=== PATIENT | female | born 1960 | race Caucasian/White ===

== ENCOUNTER 2024-11-18 11:00 | Outpatient (RCR) | payer OTHER, SELFPAY ==
--- NOTE | 2024-08-30 10:00 | OPREHPOC ---
Outpatient Therapy Plan of Care This is a Multidisciplinary Plan of Care that may contain components documented by all disciplines (PT, OT, and ST.) PT Problem 1 PT Problem #1 Knowledge Deficit PT Goal 1 Goal / Goal Update 1. Patient will perform independent HEP 2. Patient will verbalize urge suppression strategies Target Visit 3 PT Problem 2 PT Problem #2 Impaired Functional ADLs PT Goal 1 Goal / Goal Update 1. Patient will report incontinence no more than 1 time a week 2. Patient will not need to use pads on a daily basis 3. Patient will void no more than 10 times a day Target Visit 5 PT Problem 3 PT Problem #3 Impaired Strength PT Goal 1 Goal / Goal Update 1. Pelvic floor strength to 4/5 to reduce incontinence 2. Pelvic floor endurance to 10 seconds to reduce incontinence 3. Improve hip strength to 4+/5 in all planes Target Visit 5
--- NOTE | 2024-08-30 10:00 | PTOPEVAL1 ---
Assessment and note entered by Priyanka Rob DPT Evaluation Information Assessment Status Evaluation ICD-10 Condition Codes (PT) Weakness R53.1,Urge incontinence N39.41 Subjective Information Pt reports pelvic pressure that started a few years ago. States she has diabetes and voids frequently anyway but seems to be getting worse. Starts to get urge incontinence on the way to the toilet, typically a few drops and will only minimally wet a pad. Urge incontinence 3-4 times a day and uses 3-4 pads a day. Voids 10-20 times a day, another 1-3 times at night. Can hold urge to void 10-15 minutes. Denies pain with urination. Denies stress incontinence. BM every 2-3 days. Fecal incontinence approximately 1 time a month and depends on diet. No history of pelvic pain. Pt has been 3 times, delivered vaginally without complications. No other [employer] history, no b/ b history. Pt also reports concern over passing gas vaginally. Patient goal: see if therapy will help me, relieve the pressure and not void as often Also has a history of sciatica, gall bladder removal. Reported Pain Level Pain Score 0: Self Report Assessment PT Clinical Summary The patient is presenting to skilled therapy with a several year history of pelvic pressure and worsening urinary frequency and urge incontinence. She demonstrates decreased pelvic floor strength and endurance, signs of pelvic organ prolapse, as well as significantly decreased hip and core strength. These impairments are contributing to her incontinence multiple times a day and need to use pads, as well as her pelvic pressure and increased frequency of urination. She will highly benefit from skilled therapy to address impairments in order to reduce incontinence and improve function. Plan of Care Interventions Manual Therapy,Neuro Re-education,Patient/ Caregiver Education,Therapeutic Activities, Therapeutic Exercise PT Services Indicated Yes Treatment Frequency and 1 time a week for 5 visits Duration These treatments will address the objective and functional deficits as defined above. The patient will be advanced safely and appropriately in order for the patient to progress towards his/her prior level of function. Additional exercises will be introduced and as well as a comprehensive home exercise program upon discharge, if needed, ?to ensure carryover of functional gains achieved in the clinic. This treatment plan has been reviewed and agreement upon by the patient.
--- NOTE | 2024-09-27 09:29 | OPREHPOC ---
Outpatient Therapy Plan of Care This is a Multidisciplinary Plan of Care that may contain components documented by all disciplines (PT, OT, and ST.) PT Problem 1 PT Problem #1 Knowledge Deficit PT Goal 1 Goal / Goal Update 1. Patient will perform independent HEP 2. Patient will verbalize urge suppression strategies Target Visit 3 Progress Met PT Problem 2 PT Problem #2 Impaired Functional ADLs PT Goal 1 Goal / Goal Update 1. Patient will report incontinence no more than 1 time a week 2. Patient will not need to use pads on a daily basis 3. Patient will void no more than 10 times a day update 09/27 1. improved to 2 times per day 2. improved to 2 per day 3. met Target Visit 8 Progress Partially Met PT Problem 3 PT Problem #3 Impaired Strength PT Goal 1 Goal / Goal Update 1. Pelvic floor strength to 4/5 to reduce incontinence 2. Pelvic floor endurance to 10 seconds to reduce incontinence 3. Improve hip strength to 4+/5 in all planes update 09/27/24 1. met 2. met 3. no change Target Visit 8 Progress Partially Met
--- NOTE | 2024-09-27 09:29 | PTOPPROG ---
Assessment and note entered by Priyanka Rob DPT Evaluation Information Assessment Status Progress ICD-10 Condition Codes (PT) Weakness R53.1,Urge incontinence N39.41 Subjective Information Pt reports she is improving with therapy. Incontinence is occurring less often, now up to 2 times a day. She is not noticing as much pelvic pressure. Voiding less often than hourly now and is utilizing urge suppression strategies. Thinks she voided 7 times yesterday and 1 time last night . No fecal incontinence over the last month. Assessment PT Clinical Summary The patient has made excellent progress in therapy . She demonstrates improved pelvic floor strength and endurance and improved abdominal strength. She reports decreased frequency of incontinence as well as decreased urinary urgency/frequency. She does continue to report daily incontinence and demonstrate LE, abdominal, and pelvic floor weakness. She will benefit from continued therapy to further address strength in order to fully eliminate incontinence and return to full function . Plan of Care Interventions Manual Therapy,Neuro Re-education,Patient/ Caregiver Education,Therapeutic Activities, Therapeutic Exercise PT Services Indicated Yes Treatment Frequency and 1 time every other week x 3 visits Duration These treatments will address the objective and functional deficits as defined above. The patient will be advanced safely and appropriately in order for the patient to progress towards his/her prior level of function. Additional exercises will be introduced and as well as a comprehensive home exercise program upon discharge, if needed, ?to ensure carryover of functional gains achieved in the clinic. This treatment plan has been reviewed and agreement upon by the patient.
--- NOTE | 2024-11-18 11:39 | OPREHPOC ---
Outpatient Therapy Plan of Care This is a Multidisciplinary Plan of Care that may contain components documented by all disciplines (PT, OT, and ST.) PT Problem 1 PT Problem #1 Knowledge Deficit PT Goal 1 Goal / Goal Update 1. Patient will perform independent HEP 2. Patient will verbalize urge suppression strategies Target Visit 3 Progress Met PT Problem 2 PT Problem #2 Impaired Functional ADLs PT Goal 1 Goal / Goal Update 1. Patient will report incontinence no more than 1 time a week 2. Patient will not need to use pads on a daily basis 3. Patient will void no more than 10 times a day update 09/27, 11/18 1. improved to 2 times per day 2. improved to 2 per day 3. met Target Visit 9 Progress Partially Met PT Problem 3 PT Problem #3 Impaired Strength PT Goal 1 Goal / Goal Update 1. Pelvic floor strength to 4/5 to reduce incontinence 2. Pelvic floor endurance to 10 seconds to reduce incontinence 3. Improve hip strength to 4+/5 in all planes update 09/27/24 1. met 2. met 3. no change update 11/18/24 1. met 2. met 3. improved Target Visit 9 Progress Partially Met
--- NOTE | 2024-11-18 11:39 | PTOPPROG ---
Assessment and note entered by Priyanka Rob DPT Evaluation Information Assessment Status Progress ICD-10 Condition Codes (PT) Weakness R53.1,Urge incontinence N39.41 Subjective Information Pt reports she is not noticing any pelvic pressure or dropping sensation. Only waking up 1 time at night instead of 3-4 and can hold up to 4-5 hours between voiding. Incontinence 2 times a day, small volume typically and occurs right before voiding. Assessment PT Clinical Summary The patient has continued to make good progress in therapy. She reports normal voiding frequency and decreased sense of urgency, and no recent pelvic pressure. She does continue to have small volume of urinary incontinence 2 times daily. Due to her progress, the patient has been educated to continue with thorough HEP and will follow up with therapy in 1 month. Plan of Care Interventions Manual Therapy,Neuro Re-education,Patient/ Caregiver Education,Therapeutic Activities, Therapeutic Exercise PT Services Indicated Yes Treatment Frequency and 1 visit in 4 weeks Duration These treatments will address the objective and functional deficits as defined above. The patient will be advanced safely and appropriately in order for the patient to progress towards his/her prior level of function. Additional exercises will be introduced and as well as a comprehensive home exercise program upon discharge, if needed, ?to ensure carryover of functional gains achieved in the clinic. This treatment plan has been reviewed and agreement upon by the patient.
== END 2024-11-28 23:59 | disposition home or self-care (01) ==
LOC: ANHPT 11:00
DX: M99.05 Segmental and somatic dysfunction of pelvic region (principal)
CPT/HCPCS: 97110; 97112; 97161; 97530